=== PATIENT | female | born 1955 | race Caucasian/White ===

== ENCOUNTER → 2017-05-16 | Outpatient (CLI) | payer OTHER ==
[~2017-05-16] MED LIST: ANAS1TAB19 PO; CALCTAB13 PO; LISI-461 PO; MULTTAB58 PO; VENL1CAP92 PO
== END | disposition home or self-care (01) ==
LOC: C.PAPS 17:01
PROVIDERS: ATTEND Obstetrics & Gynecology
DX: Z01.419 Encounter for gynecological examination (general) (routine) without abnormal findings (principal)